=== PATIENT | male | born 1955 | race Caucasian/White ===

== ENCOUNTER 2018-11-10 11:41 | Emergency (ER) | payer MEDICARE, OTHER ==
[~2018-11-10] VITALS: Ht 177.8 cm; Wt 108.9 kg
[2018-11-10] MEDS ORDERED: HYDR1TAB94 PO (12:14)
== END 2018-11-10 12:15 | disposition home or self-care (01) ==
LOC: ER 11:41
DX: Z76.0 Encounter for issue of repeat prescription (principal); Z88.1 Allergy status to other antibiotic agents; Z88.8 Allergy status to other drugs, medicaments and biological substances
CPT/HCPCS: 99281

== ENCOUNTER 2023-01-25 06:53 | Day surgery (SDC) | payer OTHER ==
[~2023-01-25] VITALS: Ht 177.8 cm; Wt 109.2 kg
[~2023-01-25 06:53] MED LIST: HYDR1TAB94 PO
[2023-01-25] MEDS ORDERED: METO25ER PO (07:32)
[2023-01-25] MEDS ORDERED: Benazepril HCl10 MG PO (07:35)
[2023-01-25] MEDS ORDERED: ERGO400 PO (07:36)
[2023-01-25] MEDS ORDERED: DOXE10 PO (07:36)
[2023-01-25] MEDS ORDERED: MELO7.5 PO (07:38)
[2023-01-25] MEDS ORDERED: AVONEX PEN30 MCG/0.8 IM (07:38)
[2023-01-25] MEDS ORDERED: METF500 PO (07:39)
[2023-01-25] MEDS ORDERED: Robaxin750 MG PO (07:39)
[2023-01-25] MEDS ORDERED: ZOCOR20 MG PO (07:40)
[2023-01-25] MEDS ORDERED: SILD50TA PO (07:40)
[2023-01-25] MEDS ORDERED: TAMS.4ER PO (07:41)
[2023-01-25 09:20] VITALS: BP 131/77
--- NOTE | 2023-01-25 09:37 | NUR ---
01/25/23 0937 Khurram Muniz IV REMOVED INTACT. SITE WNL.
== END 2023-01-25 10:05 | disposition home or self-care (01) ==
LOC: ORSCSDS 06:53
PROVIDERS: Orthopaedic Surgery
PROC: 0JBK0ZX Excision of Left Hand Subcutaneous Tissue and Fascia, Open Approach, Diagnostic (ICD-10-PCS; principal; 2023-01-25 08:30)
DX: M67.442 Ganglion, left hand (principal); M19.049 Primary osteoarthritis, unspecified hand; I10 Essential (primary) hypertension; E78.5 Hyperlipidemia, unspecified; G47.33 Obstructive sleep apnea (adult) (pediatric); Z87.891 Personal history of nicotine dependence; E11.9 Type 2 diabetes mellitus without complications; G35 Multiple sclerosis; Z79.84 Long term (current) use of oral hypoglycemic drugs; Z79.899 Other long term (current) drug therapy; E66.9 Obesity, unspecified; Z68.34 Body mass index [BMI] 34.0-34.9, adult
CPT/HCPCS: 82947; 88304; J0690; J2001; J2704; J2795; J3010; J7120